=== PATIENT | male | born 1955 ===

== ENCOUNTER 2021-12-02 10:04 | Inpatient (IN) ==
[~2021-12-02 10:04] MED LIST: Buffered Lidocaine 1% SYRIN 1 ml INTRADERM ONE; Ketamine HCL 50 mg/ml 10 ml VIAL (500 MG) ONE; Lactated Ringers 1000 ml BAG 1,000 ML IV SCH; Lidocaine 2% PF 5 ML VIAL ONE; Propofol 10 MG/ML 20 ML BTL ONE; Rocuronium 50 mg VIAL 10 mg/ml 5 ml VIAL (50 mg) ONE; fentaNYL 250 mcg/5 ml 50 MCG/ML 5 ml VIAL (250 MCG) ONE
[2021-12-02] MEDS ORDERED: ceFAZolin 2 GM in NS PREMIX 2 GM/100 ML BAG IVPB ONE (10:08)
[2021-12-02 10:55] LABS: INR 1.29 (0.86-1.15)
[2021-12-02] MEDS ORDERED: Vancomycin 1,000 MG VIAL ONE (10:55)
[2021-12-02] MEDS ORDERED: Bupivacaine 0.25% SDV PF 10 ML VIAL INJ ONE (10:56)
[2021-12-02] MEDS ORDERED: Midazolam 5 mg/5 ml VIAL 1 mg/ml 5 ml VIAL (5 mg) ONE (11:31)
[2021-12-02] MEDS ORDERED: Dexamethasone IV 4 MG/ML VIAL 1 ml VIAL ONE (12:21)
[2021-12-02] MEDS ORDERED: Acetaminophen IV 1 GM/100ML 100 ML IV ONE (12:21)
[2021-12-02] MEDS ORDERED: Ondansetron 4 mg VIAL 2 MG/ML 2 ml VIAL ONE (12:21)
[2021-12-02 12:44] LABS: Urine Appearance Clear; Urine Bilirubin Negative (Negative); Urine Blood 1+ (Negative); Urine Color Yellow; Urine Glucose Negative (Negative); Urine Ketones Negative (Negative); Urine Nitrite Negative (Negative); Urine Protein Negative (Negative); Urine Specific Gravity 1.012 (1.002-1.030); Urine Urobilinogen Negative (Negative)
[2021-12-02] MEDS ORDERED: Naloxone 0.4 mg VIAL 0.4 mg/ml 1 ml VIAL IV PRN (12:52)
[2021-12-02] MEDS ORDERED: HYDROmorphone 1 MG/1 ML SYRINGE IV PRN (12:52)
[2021-12-02] MEDS ORDERED: DiMENhydriNATE IV 50 mg/ml 1 ml VIAL IV PUSH PRN (12:52)
[2021-12-02 12:54] LABS: Urine Bacteria Absent (Absent); Urine Red Blood Cell 1+(3-5/hpf) (Absent); Urine White Blood Cell Trace(0-5/hpf) (Absent)
[2021-12-02] MEDS ORDERED: HYDROmorphone 0.5 MG/0.5 ML SYRINGE ONE (13:51)
[2021-12-02] MEDS ORDERED: fentaNYL 100 mcg/2 ml 50 MCG/ML VIAL ONE (14:26)
[2021-12-02] MEDS ORDERED: Ondansetron ODT 4 mg TAB 4 MG TAB PO PRN (16:02)
[2021-12-02] MEDS ORDERED: Magnesium Hydroxide LIQ 30 ML UDC PO PRN (16:02)
[2021-12-02] MEDS ORDERED: diPHENhydraMINE 25 mg TAB PO PRN (16:02)
[2021-12-02] MEDS ORDERED: Lactulose 30 ml UDC PO PRN (16:02)
[2021-12-02] MEDS ORDERED: Ondansetron 4 mg VIAL 2 MG/ML 2 ml VIAL IV PRN (16:02)
[2021-12-02] MEDS ORDERED: diPHENhydraMINE IV 50 MG/ML 1 ml VIAL (BENADRYL) IV PRN (16:02)
[2021-12-02] MEDS ORDERED: GLUCAGON 1 MG IM PRN (16:10)
[2021-12-02] MEDS ORDERED: Lactated Ringers 1000 ml BAG 1,000 ML IV SCH (17:00)
[2021-12-02] MEDS ORDERED: Dextrose 50% Syringe 50 ml 25 GM/50 ML SYRINGE IV PUSH PRN (17:33)
[2021-12-02] MEDS ORDERED: HYDROmorphone 1 MG/1 ML SYRINGE ONE (17:34)
[2021-12-02] MEDS: ceFAZolin VIAL 1 GM in NS 0.9% 50 ML 50 ML IVPB SCH (20:46)
[2021-12-02] MEDS: Magnesium Hydroxide LIQ 30 ML UDC PO SCH (21:26)
[2021-12-03] MEDS ORDERED: Calcium Carb (TUMS) 500 mg CHEW TAB PO PRN (03:05)
[2021-12-03] MEDS: ceFAZolin VIAL 1 GM in NS 0.9% 50 ML 50 ML IVPB SCH ×2 (05:14→12:09)
[2021-12-03 05:15] LABS: Hematocrit 33 % (42-52); Hemoglobin 11.4 g/dL (14.0-18.0); Mean Platelet Volume 9.2 fL (7.4-10.4); Platelet Count 205 10^3/uL (150-450)
[2021-12-03] MEDS: Morphine 2 MG/ML SYRINGE IV PRN ×2 (05:50→22:57)
[2021-12-03 06:15] LABS: Calcium 8.4 mg/dL (8.6-10.3)
[2021-12-03 06:16] LABS: Potassium 5.1 mmol/L (3.5-5.0)
[2021-12-03 06:28] LABS: TSH Ultra Thyroid Stim Horm 4.15 mcIU/mL (0.34-5.60)
[2021-12-03] MEDS: Vitamin THERAPEUTIC TAB PO SCH (08:07)
[2021-12-03] MEDS: Insulin GLARGINE 100 un/ml 10 ml VIAL SUBCUT SCH (08:07)
[2021-12-03] MEDS: Magnesium Hydroxide LIQ 30 ML UDC PO SCH ×2 (08:08→23:46)
[2021-12-03] MEDS ORDERED: NS 0.9% 1000 ml BAG 1,000 ML IV SCH (08:45)
[2021-12-03] MEDS: CMCS: SitaGLIPtin 25mg TAB (NF) 25 MG TAB PO SCH (09:38)
[2021-12-03] MEDS ORDERED: Iodixanol (CONTRAST) 320 MG/ML 100 ML SDV IV ONE (16:14)
[2021-12-03 23:54] LABS: ABS Basophils 0.1 10^3/ul (0-0.2); ABS Lymphocytes 1.3 10^3/ul (1.0-4.8); ABS Monocytes 1.1 10^3/ul (0-0.8); ABS Neutrophils 7.9 10^3/ul (1.5-7.7); Eosinophil % 0.2 %; Hematocrit 30 % (42-52); Hemoglobin 10.2 g/dL (14.0-18.0); Lymphocyte % 12.5 %; Mean Corpuscular HGB Conc 34 g/dL (31-36); Mean Corpuscular Hemoglobin 30 pg (27-31); Mean Corpuscular Volume 87 fL (80-94); Mean Platelet Volume 8.8 fL (7.4-10.4); Platelet Count 196 10^3/uL (150-450); Red Blood Count 3.46 10^6 /uL (4.18-5.48); Red Cell Distribution Width 13 % (10-15); White Blood Count 10.4 10^3/uL (3.5-10.8)
[2021-12-03] MEDS: NS 0.9% 1000 ml BAG 1,000 ML IV SCH (23:58)
[2021-12-04] MEDS ORDERED: NS 0.9% 500 ml BAG 500 ML IV ONE (00:32)
[2021-12-04 00:42] LABS: Calcium 8.2 mg/dL (8.6-10.3); Potassium 4.4 mmol/L (3.5-5.0)
[2021-12-04] MEDS ORDERED: Acetaminophen IV 1 GM/100ML 100 ML IV PRN ×2 (01:13→16:19)
[2021-12-04] MEDS: NS 0.9% 1000 ml BAG 1,000 ML IV SCH (05:04)
[2021-12-04 06:00] LABS: Hematocrit 28 % (42-52); Hemoglobin 9.8 g/dL (14.0-18.0); Mean Platelet Volume 9.3 fL (7.4-10.4); Platelet Count 164 10^3/uL (150-450)
[2021-12-04] MEDS: cefTRIAXone 1 gm/50 mL D5W 1 GM/50 ML BAG IV SCH (07:36)
[2021-12-04] MEDS: Azithromycin 500 mg/250 ml NS 500 MG/250 ML BAG IVPB SCH (09:06)
[2021-12-04] MEDS: Insulin GLARGINE 100 un/ml 10 ml VIAL SUBCUT SCH (09:07)
[2021-12-04] MEDS: Vitamin THERAPEUTIC TAB PO SCH (09:07)
[2021-12-04] MEDS: Magnesium Hydroxide LIQ 30 ML UDC PO SCH ×2 (09:08→21:41)
[2021-12-04] MEDS: CMCS: SitaGLIPtin 25mg TAB (NF) 25 MG TAB PO SCH (10:35)
[2021-12-04 14:22] LABS: PCO2 Arterial 32 mmHg (35-45); PO2 Arterial 82 mmHg (80-100)
[2021-12-04 21:57] LABS: Urine Appearance Clear; Urine Bacteria Absent (Absent); Urine Bilirubin Negative (Negative); Urine Blood 2+ (Negative); Urine Color Yellow; Urine Glucose 1+(50 mg/dL) (Negative); Urine Ketones Negative (Negative); Urine Nitrite Negative (Negative); Urine Protein Negative (Negative); Urine Red Blood Cell 3+(>10/hpf) (Absent); Urine Specific Gravity 1.015 (1.002-1.030); Urine Urobilinogen Negative (Negative); Urine White Blood Cell Trace(0-5/hpf) (Absent)
[2021-12-05] MEDS: Benzocaine/Menthol LOZ PO PRN ×2 (05:05→17:58)
[2021-12-05 05:49] LABS: ABS Eosinophils 0.2 10^3/ul (0-0.6); ABS Monocytes 0.6 10^3/ul (0-0.8); ABS Neutrophils 6.1 10^3/ul (1.5-7.7); Eosinophil % 2.3 %; Hematocrit 25 % (42-52); Hemoglobin 8.7 g/dL (14.0-18.0); Mean Corpuscular HGB Conc 35 g/dL (31-36); Mean Corpuscular Hemoglobin 31 pg (27-31); Mean Corpuscular Volume 88 fL (80-94); Platelet Count 176 10^3/uL (150-450); Red Blood Count 2.85 10^6 /uL (4.18-5.48); Red Cell Distribution Width 13 % (10-15)
[2021-12-05 06:20] LABS: Calcium 7.8 mg/dL (8.6-10.3); Potassium 4.3 mmol/L (3.5-5.0); eGFR CKD-EPI 54.3 (>60)
[2021-12-05] MEDS: cefTRIAXone 1 gm/50 mL D5W 1 GM/50 ML BAG IV SCH (07:34)
[2021-12-05] MEDS ORDERED: NS 0.9% 500 ml BAG 500 ML IV ONE (09:57)
[2021-12-05] MEDS: Azithromycin 500 mg/250 ml NS 500 MG/250 ML BAG IVPB SCH (10:47)
[2021-12-05] MEDS: Vitamin THERAPEUTIC TAB PO SCH (10:48)
[2021-12-05] MEDS: CMCS: SitaGLIPtin 25mg TAB (NF) 25 MG TAB PO SCH (10:50)
[2021-12-05] MEDS: Magnesium Hydroxide LIQ 30 ML UDC PO SCH ×2 (10:50→21:51)
[2021-12-05] MEDS: Insulin GLARGINE 100 un/ml 10 ml VIAL SUBCUT SCH (10:52)
[2021-12-06 05:53] LABS: Hematocrit 23 % (42-52); Hemoglobin 8.4 g/dL (14.0-18.0); Platelet Count 198 10^3/uL (150-450)
[2021-12-06] MEDS: cefTRIAXone 1 gm/50 mL D5W 1 GM/50 ML BAG IV SCH (07:48)
[2021-12-06] MEDS: Azithromycin 500 mg/250 ml NS 500 MG/250 ML BAG IVPB SCH (09:01)
[2021-12-06] MEDS: Benzocaine/Menthol LOZ PO PRN (09:05)
[2021-12-06] MEDS: Magnesium Hydroxide LIQ 30 ML UDC PO SCH (09:05)
[2021-12-06] MEDS: Vitamin THERAPEUTIC TAB PO SCH (09:05)
[2021-12-06] MEDS: Insulin GLARGINE 100 un/ml 10 ml VIAL SUBCUT SCH (09:06)
[2021-12-06 09:12] VITALS: BP 142/79
[2021-12-06] MEDS: CMCS: SitaGLIPtin 25mg TAB (NF) 25 MG TAB PO SCH (10:00)
== END 2021-12-06 13:40 | DRG 301 ==
LOC: SSU 10:04 → OR 10:04 → SSU 12-04 01:22
PROVIDERS: ADMIT Orthopaedic Surgery; ATTEND Orthopaedic Surgery

== ENCOUNTER 2022-05-21 07:30 | Inpatient (IN) ==
[~2022-05-21 07:30] MED LIST changes: -Ketamine HCL 50 mg/ml 10 ml VIAL (500 MG) ONE; -Lidocaine 2% PF 5 ML VIAL ONE; -Propofol 10 MG/ML 20 ML BTL ONE; -Rocuronium 50 mg VIAL 10 mg/ml 5 ml VIAL (50 mg) ONE; -fentaNYL 250 mcg/5 ml 50 MCG/ML 5 ml VIAL (250 MCG) ONE
[2022-05-21] MEDS ORDERED: ceFAZolin 2 GM PREMIX 2 GM/50 ML BAG ONE (09:45)
[2022-05-21] MEDS ORDERED: Vancomycin 1,000 MG VIAL ONE (10:30)
[2022-05-21] MEDS ORDERED: Ondansetron 4 mg VIAL 2 MG/ML 2 ml VIAL IV PRN (10:57)
[2022-05-21] MEDS ORDERED: fentaNYL 100 mcg/2 ml 50 MCG/ML VIAL IV PRN (10:57)
[2022-05-21] MEDS ORDERED: Acetaminophen IV 1 GM/100ML 1,000 MG/100 ML BAG IV PRN (10:57)
[2022-05-21] MEDS ORDERED: Naloxone 0.4 mg VIAL 0.4 mg/ml 1 ml VIAL IV PRN (10:57)
[2022-05-21] MEDS ORDERED: Propofol 10 MG/ML 20 ML BTL ONE ×2 (13:32→16:04)
[2022-05-21] MEDS ORDERED: Dexamethasone IV 4 MG/ML VIAL 1 ml VIAL ONE (13:32)
[2022-05-21] MEDS ORDERED: Ondansetron 4 mg VIAL 2 MG/ML 2 ml VIAL ONE (13:32)
[2022-05-21] MEDS ORDERED: Lidocaine 2% PF 5 ML VIAL ONE (13:32)
[2022-05-21] MEDS ORDERED: Midazolam 2 mg/2 ml VIAL 1 mg/ml 2 ml VIAL (2 mg) ONE (13:33)
[2022-05-21] MEDS ORDERED: fentaNYL 100 mcg/2 ml 50 MCG/ML VIAL ONE (13:33)
[2022-05-21] MEDS ORDERED: Rocuronium 50 mg VIAL 10 mg/ml 5 ml VIAL (50 mg) ONE ×2 (13:33→18:00)
[2022-05-21] MEDS ORDERED: fentaNYL 250 mcg/5 ml 50 MCG/ML 5 ml VIAL (250 MCG) ONE (15:52)
[2022-05-21] MEDS ORDERED: HYDROmorphone 0.5 MG/0.5 ML SYRINGE ONE ×2 (15:53)
[2022-05-21] MEDS ORDERED: Phenylephrine IV 10 MG/ML 1 ml VIAL ONE (16:39)
[2022-05-21 18:51] LABS: ABS Basophils 0.1 10^3/ul (0-0.2); ABS Eosinophils 0.1 10^3/ul (0-0.6); ABS Monocytes 0.7 10^3/ul (0-0.8); ABS Neutrophils 11.6 10^3/ul (1.5-7.7); Hematocrit 37 % (42-52); Hemoglobin 12.4 g/dL (14.0-18.0); Lymphocyte % 13.9 %; Mean Corpuscular HGB Conc 33 g/dL (31-36); Mean Corpuscular Hemoglobin 28 pg (27-31); Mean Corpuscular Volume 85 fL (80-94); Mean Platelet Volume 8.9 fL (7.4-10.4); Nucleated Red Blood Cells % 0.1; Platelet Count 276 10^3/uL (150-450); Red Cell Distribution Width 15 % (10-15); White Blood Count 14.4 10^3/uL (3.5-10.8)
[2022-05-21] MEDS ORDERED: ceFAZolin 2 GM in NS PREMIX 2 GM/100 ML BAG IVPB ONE (19:13)
[2022-05-21] MEDS ORDERED: Sugammadex 500 MG/5 ML 5 ml VIAL IV PUSH ONE (19:17)
[2022-05-21] MEDS ORDERED: Magnesium Hydroxide LIQ 30 ML UDC PO PRN (19:50)
[2022-05-21] MEDS ORDERED: Ondansetron ODT 4 mg TAB 4 MG TAB PO PRN (19:50)
[2022-05-21] MEDS ORDERED: Lactulose 30 ml UDC PO PRN (19:50)
[2022-05-21] MEDS: HYDROmorphone 1 MG/1 ML SYRINGE IV PRN ×2 (20:01→20:26)
[2022-05-21] MEDS ORDERED: HYDROmorphone 1 MG/1 ML SYRINGE ONE (20:01)
[2022-05-21] MEDS: Lactated Ringers 1000 ml BAG 1,000 ML IV SCH (21:57)
[2022-05-21] MEDS: Magnesium Hydroxide LIQ 30 ML UDC PO SCH (22:56)
[2022-05-21] MEDS ORDERED: Dextrose 50% Syringe 50 ml 25 GM/50 ML SYRINGE IV PUSH PRN (23:46)
[2022-05-22] MEDS: Ondansetron 4 mg VIAL 2 MG/ML 2 ml VIAL IV PRN ×2 (00:09→06:24)
[2022-05-22] MEDS: ceFAZolin 1 GM ADVAN 1 GM in NS 0.9% 50 ML 50 ML IVPB SCH ×3 (03:16→19:59)
[2022-05-22 06:08] LABS: Hematocrit 28 % (42-52); Hemoglobin 9.3 g/dL (14.0-18.0); Mean Platelet Volume 9.1 fL (7.4-10.4); Platelet Count 211 10^3/uL (150-450)
[2022-05-22 06:35] LABS: Calcium 8.3 mg/dL (8.6-10.3); eGFR CKD-EPI 43.1 (>60)
[2022-05-22 06:39] LABS: Potassium 5.6 mmol/L (3.5-5.0)
[2022-05-22 06:49] LABS: TSH Ultra Thyroid Stim Horm 1.38 mcIU/mL (0.34-5.60)
[2022-05-22] MEDS ORDERED: Prochlorperazine 5 mg/ml 2 ml VIAL (10 mg) IV PRN (07:57)
[2022-05-22] MEDS ORDERED: Scopolamine 1 mg/72hr PATCH TRANSDERM PRN (07:57)
[2022-05-22] MEDS ORDERED: Scopolamine 1 mg/72hr PATCH ONE (07:58)
[2022-05-22] MEDS ORDERED: SODIUM ZIRCONIUM CYCLOSILICATE 10 GM PACKET PO ONE (08:00)
[2022-05-22] MEDS: Morphine 2 MG/ML SYRINGE IV PRN (08:02)
[2022-05-22] MEDS: Prochlorperazine 5 mg/ml 2 ml VIAL (10 mg) ONE ×2 (08:11→08:15)
[2022-05-22] MEDS: Magnesium Hydroxide LIQ 30 ML UDC PO SCH ×2 (08:43→20:58)
[2022-05-22] MEDS: CMCS: SitaGLIPtin 25mg TAB (NF) 25 MG TAB PO SCH (08:43)
[2022-05-22] MEDS: Vitamin THERAPEUTIC TAB PO SCH (08:43)
[2022-05-22] MEDS: Insulin GLARGINE 100 un/ml 10 ml VIAL SUBCUT SCH (09:21)
[2022-05-22 12:04] LABS: Hematocrit 26 % (42-52); Hemoglobin 8.6 g/dL (14.0-18.0)
[2022-05-22] MEDS: Lactated Ringers 1000 ml BAG 1,000 ML IV SCH (20:57)
[2022-05-23] MEDS: Morphine 2 MG/ML SYRINGE IV PRN (02:30)
[2022-05-23 07:07] LABS: Hematocrit 23 % (42-52); Hemoglobin 7.9 g/dL (14.0-18.0); Mean Platelet Volume 8.7 fL (7.4-10.4); Platelet Count 207 10^3/uL (150-450)
[2022-05-23] MEDS: Vitamin THERAPEUTIC TAB PO SCH (08:16)
[2022-05-23] MEDS: Magnesium Hydroxide LIQ 30 ML UDC PO SCH ×2 (08:16→21:03)
[2022-05-23] MEDS: CMCS: SitaGLIPtin 25mg TAB (NF) 25 MG TAB PO SCH (08:16)
[2022-05-23 08:56] LABS: Calcium 8.1 mg/dL (8.6-10.3); Potassium 4.9 mmol/L (3.5-5.0); eGFR CKD-EPI 47.4 (>60)
[2022-05-23] MEDS: Insulin GLARGINE 100 un/ml 10 ml VIAL SUBCUT SCH (09:16)
[2022-05-23 12:57] LABS: Osmolality Serum 280 mOsm/kg (275-295)
[2022-05-23 22:51] LABS: Urine Osmo 660 mOsm/kg (150-1150)
[2022-05-24 05:43] LABS: Hematocrit 21 % (42-52); Hemoglobin 7.2 g/dL (14.0-18.0); Mean Platelet Volume 8.2 fL (7.4-10.4); Platelet Count 204 10^3/uL (150-450)
[2022-05-24 06:15] LABS: Calcium 8.1 mg/dL (8.6-10.3); eGFR CKD-EPI 48.5 (>60)
[2022-05-24] MEDS: CMCS: SitaGLIPtin 25mg TAB (NF) 25 MG TAB PO SCH (08:41)
[2022-05-24] MEDS: Magnesium Hydroxide LIQ 30 ML UDC PO SCH ×2 (08:42→21:32)
[2022-05-24] MEDS: Vitamin THERAPEUTIC TAB PO SCH (08:43)
[2022-05-24] MEDS: Insulin GLARGINE 100 un/ml 10 ml VIAL SUBCUT SCH (08:44)
[2022-05-24 12:01] LABS: Hematocrit 21 % (42-52); Hemoglobin 7.2 g/dL (14.0-18.0)
[2022-05-25 04:59] LABS: Hematocrit 25 % (42-52); Hemoglobin 8.4 g/dL (14.0-18.0); Platelet Count 217 10^3/uL (150-450)
[2022-05-25 08:10] LABS: Calcium 7.9 mg/dL (8.6-10.3); eGFR CKD-EPI 55.7 (>60)
[2022-05-25] MEDS: Insulin GLARGINE 100 un/ml 10 ml VIAL SUBCUT SCH (08:56)
[2022-05-25] MEDS: Vitamin THERAPEUTIC TAB PO SCH (08:57)
[2022-05-25] MEDS: CMCS: SitaGLIPtin 25mg TAB (NF) 25 MG TAB PO SCH (08:59)
[2022-05-25] MEDS: Magnesium Hydroxide LIQ 30 ML UDC PO SCH ×4 (09:00→20:53)
[2022-05-25] MEDS: Senna TAB 8.6 mg TAB PO SCH (20:53)
[2022-05-26 06:00] LABS: Hematocrit 23 % (42-52); Hemoglobin 7.7 g/dL (14.0-18.0); Mean Platelet Volume 7.8 fL (7.4-10.4); Platelet Count 242 10^3/uL (150-450)
[2022-05-26] MEDS: Magnesium Hydroxide LIQ 30 ML UDC PO SCH ×3 (07:31→20:17)
[2022-05-26] MEDS: Polyethylene Glycol 3350 17 GM PACKET PO SCH (07:35)
[2022-05-26] MEDS: CMCS: SitaGLIPtin 25mg TAB (NF) 25 MG TAB PO SCH (07:36)
[2022-05-26] MEDS: Vitamin THERAPEUTIC TAB PO SCH (07:36)
[2022-05-26] MEDS: Insulin GLARGINE 100 un/ml 10 ml VIAL SUBCUT SCH (09:50)
[2022-05-26 10:09] LABS: Calcium 7.6 mg/dL (8.6-10.3); Potassium 3.9 mmol/L (3.5-5.0); eGFR CKD-EPI 56.2 (>60)
[2022-05-26 16:00] LABS: Hematocrit 24 % (42-52); Hemoglobin 8.1 g/dL (14.0-18.0)
[2022-05-26] MEDS: Senna TAB 8.6 mg TAB PO SCH (20:18)
[2022-05-27] MEDS: Insulin GLARGINE 100 un/ml 10 ml VIAL SUBCUT SCH (08:45)
[2022-05-27] MEDS: Polyethylene Glycol 3350 17 GM PACKET PO SCH (08:47)
[2022-05-27] MEDS: Magnesium Hydroxide LIQ 30 ML UDC PO SCH (08:47)
[2022-05-27] MEDS: CMCS: SitaGLIPtin 25mg TAB (NF) 25 MG TAB PO SCH (08:47)
[2022-05-27] MEDS: Vitamin THERAPEUTIC TAB PO SCH (08:47)
[2022-05-27 11:39] VITALS: BP 129/78
== END 2022-05-27 18:50 | DRG 301 ==
LOC: AA 09:34 → INTOOBSV 09:34 → SSU 21:36
PROVIDERS: ADMIT Orthopaedic Surgery; ATTEND Orthopaedic Surgery